=== PATIENT | female | born 2000 | race African-American/Black ===

== ENCOUNTER 2021-08-14 20:28 | Observation (INO) | payer MEDICAID ==
[~2021-08-14] VITALS: Ht 165.1 cm; Wt 81.6 kg
[2021-08-14] MEDS ORDERED: PNV1CAPS42 MT (21:04)
== END 2021-08-14 23:57 | disposition home or self-care (01) ==
LOC: 8 EST LDRP 20:28
PROVIDERS: ADMIT Obstetrics & Gynecology; ATTEND Obstetrics & Gynecology
DX: O26.893 Other specified pregnancy related conditions, third trimester (principal); R10.9 Unspecified abdominal pain; O48.0 Post-term pregnancy; Z3A.40 40 weeks gestation of pregnancy
CPT/HCPCS: 59025; 76805; 76818; G0378; 99281; G0379